=== PATIENT | female | born 1980 | race African-American/Black ===

== ENCOUNTER 2022-06-25 00:57 | Inpatient (IN) | payer OTHER, SELFPAY ==
[2022-06-25] VITALS (216 sets, daily range): BP systolic 90–163; BP diastolic 53–143; PULSE 27–156; RESP 14–19; TEMP 36.2–36.6; O2SAT 67–100; BMI 29.7
[2022-06-25 02:12] LABS: Basophils Percent Auto 0.4 % (0.2-1.2); Eosinophils Absolute Auto 0.1 K/mm3 (0-0.3); Hemoglobin 10.8 g/dL (12.0-15.0); Immature Granulocyte Absolute 0.03 K/mm3 (0.00-0.031); Immature Granulocyte Percent A 0.6 % (0-0.5); Lymphocytes Absolute Auto 1.09 K/mm3 (0.9-3.2); Lymphocytes Percent Auto 20.1 % (18.3-44.2); Mean Corpuscular HGB Conc 32.7 g/dl (32-36); Mean Corpuscular Hemoglobin 27.8 pg (26-34); Mean Corpuscular Volume 84.8 fl (80-100); Mean Platelet Volume 9.6 fl (7.4-10.4); Monocytes Absolute Auto 0.6 K/mm3 (0.1-0.6); Monocytes Percent Auto 10.1 % (2.6-8.5); Neutrophils Absolute Auto 3.6 K/mm3 (1.3-6.7); Neutrophils Percent Auto 66.8 % (45.5-73.1); Platelet Count Result 166 k/mm3 (150-375); Red Blood Count 3.89 M/mm3 (4.2-5.4); Red Cell Distribution Width 17.7 % (11.5-14.5); White Blood Count 5.4 K/mm3 (4.5-10.0)
--- NOTE | 2022-06-25 02:22 | LDADM ---
This patient, Wanda Beckett, was admitted to Labor/Delivery/Recovery 105 on 06/25/22 at 00:57. Plans for labor, pain management and were discussed with patient. Patient/family oriented to hospital policies and general routines including ID bracelet, bed and alarms, visiting hours, pain management, procedures, bathroom and other care routines, personal items, smoking policy, room service/diet and guest tray routines, security routines, and visiting hours. Patient/Family are encouraged to report perceived risks to care and to ask questions if they do not understand what they are told or what they should do. See OBIX for further documentation.
[2022-06-25] MEDS: OXYTOCIN 30 UNITS/NS 500 ML 30 UNITS/500 ML BAG IV CONT (07:00)
[2022-06-25] MEDS: LACTATED RINGERS 1,000 ML 125 ML IV CONT ×2 (07:00→22:05)
--- NOTE | 2022-06-25 07:25 | PM.IMHP ---
H&P: HPI History of Present Illness Date/Time: 06/25/22 07:25 Chief Complaint: SROM Narrative: Wanda is a 42yo at 38.6 with SROM around midnight. She has a prior CS but has VBACed successfully since then and desires another . GBS neg. complicated by AMA over 40yo and anemia for which she received IV iron. Review of Systems Review of Systems: All systems reviewed & are unremarkable except as noted in HPI and below PMFSH Family History Family History (Updated 06/07/22 @ 14:39 by Maribeth Oquendo RN) Father Diabetes mellitus Sibling Diabetes mellitus Social History Social History Smoking status: Never smoker Substance use: never Lack of Transportation: No Lack of Food: Never True Current Housing: I Have Housing Concerned About Future Housing: No Difficulty Paying Gas/Electric Bills: No Difficulty Paying for Meds: No Currently Unemployed: No Education: Bachelor's Degree Difficulty w/ Childcare or Family Care: No Spiritual care concerns: No Meds Home Medications and Allergies Home Medications Medication Instructions Recorded Confirmed Type prenat.vits,radhika,[id number] 1 tablet PO HS 05/18/22 05/18/22 History cyanocobalamin (vitamin B-12) 100 100 mcg PO DAILY 06/07/22 06/07/22 History mcg tablet (Vitamin B-12) Allergies Allergy/AdvReac Type Severity Reaction Status Date / Time Penicillins Allergy Other Verified 06/25/22 03:05 Vital Signs Vital Signs - 24 hr 06/25/22 01:30 06/25/22 01:45 06/25/22 02:00 Temperature 97.8 F Pulse Rate 84 84 89 Respiratory Rate 16 Blood Pressure 105/75 110/74 109/82 Pulse Oximetry Oxygen Delivery 06/25/22 02:15 06/25/22 02:30 06/25/22 02:45 Temperature Pulse Rate 88 86 84 Respiratory Rate Blood Pressure 103/67 103/67 107/68 Pulse Oximetry Oxygen Delivery 06/25/22 04:58 06/25/22 04:59 06/25/22 03:00 Temperature 97.2 F L 97.5 F L Pulse Rate 83 Respiratory Rate 14 16 Blood Pressure 105/73 Pulse Oximetry Oxygen Delivery 06/25/22 06:37 06/25/22 06:42 06/25/22 06:49 Temperature Pulse Rate Respiratory Rate Blood Pressure Pulse Oximetry 99 99 99 Oxygen Delivery 06/25/22 06:54 06/25/22 06:59 06/25/22 07:04 Temperature Pulse Rate Respiratory Rate Blood Pressure Pulse Oximetry 100 100 100 Oxygen Delivery 06/25/22 07:08 06/25/22 07:13 06/25/22 07:18 Temperature Pulse Rate Respiratory Rate Blood Pressure Pulse Oximetry 100 100 100 Oxygen Delivery 06/25/22 07:17 06/25/22 07:23 06/25/22 02:00 Temperature 97.4 F L Pulse Rate Respiratory Rate Blood Pressure Pulse Oximetry 100 Oxygen Delivery Room Air Exam Const: General: no acute distress Resp: Effort & Inspection: normal respiratory effort Auscultation: clear to auscultation bilaterally Cardio: Rate: regular rate Rhythm: regular rhythm GI: GI Palp: Yes Soft to palpation Extrem: General: normal to inspection H&P: Results Labs Labs: Short CBC 06/25/22 Range/Units 01:52 WBC 5.4 (4.5-10.0) K/mm3 Hgb 10.8 L (12.0-15.0) g/dL Hct 33.0 L (37.0-47.0) % Plt Count 166 (150-375) k/mm3 Assessment and Plan Assessment and plan (1) AMA (advanced maternal age) multigravida 35+: Code(s): O09.529 - Supervision of elderly multigravida, unspecified trimester Status: Acute (2) History of delivery: Code(s): Z98.891 - History of uterine scar from previous surgery Status: Acute (3) Hx successful (vaginal after ), currently : Code(s): O34.219 - Maternal care for unspecified type scar from previous delivery Status: Acute Plan FHT category 1 discussed pitocin augmentation with IUPC in to avoid chorioamnionitis in a prolonged labor as her contractions are infrequent 7 hours out from SROM. pt agreeable. IUPC p
[2022-06-25 11:21] LABS: Rapid Plasma Reagin Non-Reactive (NonReactive)
--- NOTE | 2022-06-25 12:55 | PM.OBPNLAB ---
Pain Control Date/time seen: 06/25/22 12:55 Assessment and Plan Comments: vertex on BSUS /-4 FHT category 1 toco irregular, not adequate continue pitocin
--- NOTE | 2022-06-25 16:56 | WPDANESEPP ---
Anes - Eval Pre Procedure Procedure: Labor epidural Date/Time: 06/25/22 16:56 Pre Op Diagnosis: Contractions/Leaking Patient Data Age: 42 Gender: F Height: 1.65 m Weight: 81 kg Last Vital Signs Temp 36.6 C 06/25/22 15:00 Pulse 77 06/25/22 16:45 Resp 16 06/25/22 15:00 BP 105/73 06/25/22 16:45 Pulse Ox 100 06/25/22 16:54 O2 Del Method Room Air 06/25/22 02:00 Allergies Allergy/AdvReac Type Severity Reaction Status Date / Time Penicillins Allergy Other Verified 06/25/22 03:05 Home Medications Medication Instructions Recorded Confirmed Type prenat.vits,radhika,[id number] 1 tablet PO HS 05/18/22 05/18/22 History cyanocobalamin (vitamin B-12) 100 100 mcg PO DAILY 06/07/22 06/07/22 History mcg tablet (Vitamin B-12) Laboratory Tests 06/25/22 01:52 WBC 5.4 K/mm3 (4.5-10.0) RBC 3.89 L M/mm3 (4.2-5.4) Hgb 10.8 L g/dL (12.0-15.0) Hct 33.0 L % (37.0-47.0) MCV 84.8 fl (80-100) MCH 27.8 pg (26-34) MCHC 32.7 g/dl (32-36) RDW 17.7 H % (11.5-14.5) Plt Count 166 k/mm3 (150-375) MPV 9.6 fl (7.4-10.4) Immature Gran % (Auto) 0.6 H % (0-0.5) Neut % (Auto) 66.8 % (45.5-73.1) Lymph % (Auto) 20.1 % (18.3-44.2) Edwards % (Auto) 10.1 H % (2.6-8.5) Eos % (Auto) 2.0 % (0-4.4) Baso % (Auto) 0.4 % (0.2-1.2) Lymph # (Auto) 1.09 K/mm3 (0.9-3.2) Edwards # (Auto) 0.6 K/mm3 (0.1-0.6) Eos # (Auto) 0.1 K/mm3 (0-0.3) Baso # (Auto) 0.0 K/mm3 (0.0-0.1) Abs Immat Gran (auto) 0.03 K/mm3 (0.00-0.031) Absolute Neuts (auto) 3.6 K/mm3 (1.3-6.7) Absolute Nucleated RBC 0.0 K/mm3 (0.0-0.012) Nucleated RBC % 0.0 % (0.0-0.2) RPR Non-reactive (NonReactive) Blood Type O Positive Antibody Screen Negative Patient hx anesthesia problems: none Family hx anesthesia problems: none Results Review: All pre-operative results and documents have been reviewed as part of the pre-operative evaluation. [facility] Past Medical History Medical History (Updated 06/25/22 @ 16:57 by Anna Marie Lu CRNA) Anxiety and depression Migraine Scoliosis Family History Family History Father Diabetes mellitus Sibling Diabetes mellitus Social History Social History Smoking status: Never smoker Substance use: never Lack of Transportation: No Lack of Food: Never True Current Housing: I Have Housing Concerned About Future Housing: No Difficulty Paying Gas/Electric Bills: No Difficulty Paying for Meds: No Currently Unemployed: No Education: Bachelor's Degree Difficulty w/ Childcare or Family Care: No Spiritual care concerns: No Exam Day of Procedure 06/25/22 16:56 Patient weight: overweight Heart: regular rate and rhythm Lungs: normal air movement Airway: Mallampati scale Neurological: alert and oriented
[2022-06-25] MEDS: ceFAZolin 2 GM/D5W 50 ML 2 GM/50 ML BAG IVPB ×2 (17:40→23:36)
--- NOTE | 2022-06-25 23:15 | WPDHPUPDATE1 ---
History and Physical Update Update Date/Time: 06/25/22 23:15 History and Physical has been reviewed, including an updated exam of the patient. SVE 7-8/70/-3 FHT category 2 with minimal to moderate variability. has had two prolonged decelerations in the last hour, now with recurrent late decelerations until pitocin turned off. unable to run pitocin at all without decelerations. toco with pitocin off very inadequate contractions. given very slow change, vertex still very high, inability to run pitocin, multiple prolonged decelerations and lates, recommend section for failed . Pt agreeable. FHT with pitocin off 120 moderate variability with accels, nonrecurrent lates. consented to repeat CS for failed TOLAC, intolerance of labor. Will proceed. Risks, benefits, and alternatives have been discussed and questions answered. Patient agrees to proceed with procedure.
[2022-06-25] MEDS: AZITHROMYCIN 500 MG/NS 250 ML 500 MG/250 ML BAG 250 MG IVPB (23:36)
[2022-06-26] VITALS (52 sets, daily range): BP systolic 82–110; BP diastolic 40–71; PULSE 64–266; RESP 14–18; TEMP 36.1–37; O2SAT 94–100
[2022-06-26] MEDS: KETOROLAC 30 MG/ML VIAL (*BKC) IV PUSH (00:23)
--- NOTE | 2022-06-26 00:34 | PM.OBPRVD ---
OB - Delivery Note Procedure Delivery date: 06/26/22 Procedure: Procedures Operation Date: 06/25/22 23:10 <No data on this case meets the specified criteria> repeat section Events: Previous Delivery Intrapartal Events: Decelerations and Non-Reassuring Status Delivery augmentation: Pitocin Delivery monitor: External FHT and Internal Uterine Route of delivery: Prior to decision for section, ACOG/SMFM labor guidelines were considered and discussed with the patient and staff. Decision made to proceed with the section.: Yes Specimen: Yes (placenta) Quantitative Blood Loss (ml): 860 Anesthesia type: Spinal Disposition: Floor Complications: none Narrative: Preop Dx: IUP at term, prolonged ROM, prior CS, failed TOLAC, intolerance of labor Post op Dx: same The patient was taken to the OR and epidural was dosed. She was placed in dorsal supine position with left lateral tilt. SCDs and travis were placed. She was prepped and draped in the normal sterile fashion. A Pfannensteil skin incision was made and carried through to the underlying layer of fascia. The fascia was incised in the midline and then extended laterally using Reyes scissors. The muscles were in the midline and the peritoneum was entered bluntly. The peritoneal incision was extended inferiorly and superiorly with care to avoid the bladder. The bladder blade was then inserted, the vesicouterine peritoneum was grasped, incised with Metzenbaum scissors, and a bladder flap created. The bladder blade was reinserted. A low transverse uterine incision was made with a scalpel and extended bluntly. AROM was performed and fluid was noted to be clear. The head was delivered, followed by the remainder of the baby. The baby's oropharynx was suctioned. After 30 seconds, the cord was clamped and cut and the was handed off. Cord blood was obtained and the placenta was then removed manually. The uterus was unable to be exteriorized. A moist lap sponge was used to curette the endometrium. The uterine incision was then closed with one layer of 0-Vicryl in a running, locking fashion. Good hemostasis was noted. Both lateral gutters were then irrigated. The rectus muscles were inspected and found to be hemostatic. The fascia was reapproximated using 0-Vicryl in running fashion. The subcutaneous tissue was irrigated with normal saline and made hemostatic with Bovie electrocautery. The skin was then closed with absorbable princess. Steri strips and a bandage were applied. The uterus was evacuated. The patient tolerated the procedure very well. All counts were correct. She was taken to the recovery room in good condition. Baby Date of : 06/26/22 Time of : 00:00 Weeks of gestation at delivery: 38 Infant gender: Female Weight (pounds): 7 Weight (ounces): 0 presentation: vertex Placenta delivery description: Manual Removal Cord Vessel Description: 3 Vessels and Delayed Cord Clamping score one minute: 8 score five minutes: 9
[2022-06-26] MEDS: PHENYLEPHRINE 1,000 MCG/10 ML SYRINGE 100 MCG IV PUSH ×2 (00:52→00:58)
--- NOTE | 2022-06-26 03:03 | OBPPTRN ---
Patient transferred to post room #280 via stretcher. Support person present. Oriented to unit, room, information board, rooming in, admission packet and security measures. Patient verbalizes understanding.
[2022-06-26] MEDS: DEXTROSE 5%/0.45% SOD CHL 1,000 ML 125 ML IV CONT (03:30)
[2022-06-26] MEDS: POLYSACCHARIDE IRON COMPLEX 150 MG CAPSULE PO ×2 (09:38→18:55)
[2022-06-26] MEDS: DOCUSATE SODIUM 100 MG CAPSULE PO ×2 (09:38→18:55)
[2022-06-26] MEDS: MULTIVIT/MIN/PREN/FOL AC/IRON TABLET 1 TAB PO (09:38)
--- NOTE | 2022-06-26 18:32 | WPDANLDNPN2 ---
Anes-Prog Note L&D-Neuraxial Date/Time: 06/26/22 18:32 Patient feedback: Patient satisfied with post-operative pain management.
--- NOTE | 2022-06-26 18:32 | WPDANLDPN2 ---
Anes-Prog Note L&D Date/Time: 06/26/22 18:32 Neuro status: Neuro function grossly intact. Cardiovascular status: normal Respiratory status: normal Airway patency: baseline Mental status: baseline Post-Op hydration status: normal Vital Signs: Last Vital Signs Temp 37.0 C 06/26/22 16:40 Pulse 86 06/26/22 16:40 Resp 16 06/26/22 16:40 BP 102/66 06/26/22 16:40 Pulse Ox 100 06/26/22 16:40 O2 Del Method Room Air 06/26/22 03:15 Pain score (VAS): 0 I/O: Intake & Output 06/26/22 06/26/22 06/26/22 07:59 15:59 23:59 Intake Total 300 1740 700 Output Total 1110 850 600 Balance -810 890 100 Post-procedural complaints: none Patient feedback: Patient satisfied with anesthetic care.
[2022-06-26] MEDS: IBUPROFEN 600 MG TABLET PO (18:56)
[2022-06-27 05:06] LABS: Basophils Percent Auto 0.3 % (0.2-1.2); Eosinophils Absolute Auto 0.1 K/mm3 (0-0.3); Eosinophils Percent Auto 0.8 % (0-4.4); Hematocrit 29.5 % (37.0-47.0); Hemoglobin 9.4 g/dL (12.0-15.0); Immature Granulocyte Absolute 0.05 K/mm3 (0.00-0.031); Immature Granulocyte Percent A 0.7 % (0-0.5); Immature Platelet Fraction Pct 2.9 % (0.9-11.2); Lymphocytes Absolute Auto 0.95 K/mm3 (0.9-3.2); Lymphocytes Percent Auto 13.3 % (18.3-44.2); Mean Corpuscular HGB Conc 31.9 g/dl (32-36); Mean Corpuscular Hemoglobin 27.7 pg (26-34); Mean Platelet Volume 9.9 fl (7.4-10.4); Monocytes Absolute Auto 0.6 K/mm3 (0.1-0.6); Monocytes Percent Auto 8.5 % (2.6-8.5); Neutrophils Absolute Auto 5.5 K/mm3 (1.3-6.7); Neutrophils Percent Auto 76.4 % (45.5-73.1); Platelet Count Result 170 k/mm3 (150-375); Red Blood Count 3.39 M/mm3 (4.2-5.4); Red Cell Distribution Width 17.9 % (11.5-14.5); White Blood Count 7.2 K/mm3 (4.5-10.0)
[2022-06-27 09:15] VITALS: BP 115/75; PULSE 80; RESP 16; TEMP 36.9; O2SAT 99
--- NOTE | 2022-06-27 10:18 | PM.OBPNVD ---
OB - PN: Subj Subjective Date/time seen: 06/27/22 10:18 s/p rpt section,failed pt doing well, encouraged ibuprofen and tylenol flatus present OB - PN: Obj Data Labs 06/27/22 04:55 Labs: Laboratory Results - last 24 hr 06/27/22 04:55 WBC 7.2 RBC 3.39 L Hgb 9.4 L Hct 29.5 L MCV 87.0 MCH 27.7 MCHC 31.9 L RDW 17.9 H Plt Count 170 MPV 9.9 Immature Gran % (Auto) 0.7 H Neut % (Auto) 76.4 H Lymph % (Auto) 13.3 L Otero % (Auto) 8.5 Eos % (Auto) 0.8 Baso % (Auto) 0.3 Lymph # (Auto) 0.95 Otero # (Auto) 0.6 Eos # (Auto) 0.1 Baso # (Auto) 0.0 Abs Immat Gran (auto) 0.05 H Absolute Neuts (auto) 5.5 Absolute Nucleated RBC 0.0 Nucleated RBC % 0.0 % Immature Plt Fraction 2.9 OB - PN A/P Plan day: 1 Plan: routine care Time Spent With Patient Time: Total time spent is greater than 50% in coordination of care (as documented) at patient's floor/unit and/or counseling patient: Review of Systems Review of Systems: All systems reviewed & are unremarkable except as noted in HPI and below Exam Narrative: incision CDI steri strips intact Const: General: cooperative and healthy appearing Chest: Chest palpation & inspection: normal inspection of the chest Resp: Effort & Inspection: normal respiratory effort Skin: General skin exam: normal color Extrem: General: normal to inspection Psych: Appearance: grossly normal and well kempt
[2022-06-27] MEDS: IBUPROFEN 600 MG TABLET PO ×2 (10:22→16:15)
[2022-06-27] MEDS: MULTIVIT/MIN/PREN/FOL AC/IRON TABLET 1 TAB PO (10:22)
[2022-06-27] MEDS: DOCUSATE SODIUM 100 MG CAPSULE PO ×2 (10:22→16:15)
[2022-06-27] MEDS: POLYSACCHARIDE IRON COMPLEX 150 MG CAPSULE PO (16:15)
[2022-06-27] MEDS: SIMETHICONE 80 MG TAB.CHEW PO (16:23)
[2022-06-27 20:00] VITALS: BP 113/70; PULSE 82; RESP 18; TEMP 36.8; O2SAT 99
[2022-06-28] MEDS: SIMETHICONE 80 MG TAB.CHEW PO ×2 (01:06→07:45)
[2022-06-28] MEDS: IBUPROFEN 600 MG TABLET PO ×3 (01:06→16:15)
--- NOTE | 2022-06-28 07:28 | PM.OBPNVD ---
OB - PN: Subj Subjective Date/time seen: 06/28/22 07:28 Patient comments: no complaints and pain well controlled baby status: doing well and other (awaiting cultures) feeding status: exclusively breast feeding Narrative: would like DC home if baby ok to go. OB - PN: Obj Data Labs 06/27/22 04:55 OB - PN A/P Plan day: 2 Plan: routine care Comments: DC home if baby ok to go Time Spent With Patient Time: Total time spent is greater than 50% in coordination of care (as documented) at patient's floor/unit and/or counseling patient: Exam Narrative: NAD abdomen soft, appropriately tender, incision CDI Extremities nontender with 1+ edema
--- NOTE | 2022-06-28 07:31 | PM.OBDSVD ---
DS: Admitting Diagnosis Discharge Date 06/28/22 Admitting Diagnosis SROM, prior CS, prior successful DS: Discharge Diagnosis Discharge Diagnosis (1) Failed attempted vaginal after previous delivery: Code(s): O66.41 - Failed attempted vaginal after previous delivery Status: Acute (2) delivery delivered: Code(s): O82 - Encounter for delivery without indication Status: Acute OB - DS: Summary Hospital Course Hospital Course: Wanda was admitted for SROM without labor at term. She had a prior CS and a prior and desired . She was augmented with pitocin and progressed to 7-8cm but still thick and high and baby had several prolonged decelerations along with repetitive lates, so she had a repeat CS. Her course was uncomplicated. OB Procedures : NST and Ultrasound OB Procedures Intrapartum: OB Procedures: : None Peripartum Data Delivery Method: Section Procedures: Procedures Operation Date: 06/25/22 23:10 Actual Procedure Side Surgeon p Section Bilateral Carolina Cuenca MD Repeat low transverse section complications: none Status at Discharge Functional status at discharge: independent ambulation Time Spent with Patient Time attestation: Total time spent providing and/or coordinating discharge services: Exam Narrative: NAD abdomen soft, appropriately tender, incision CDI DS: Data Data Completed and Pending Pending studies at discharge: Pending at discharge 06/26/22 00:02 Surgical [PTH] Routine Discharge Plan Discharge Attending physician on discharge: Carolina Cuenca Discharging Clinician: Carolina Cuenca Anticipated Discharge Date/Time: 06/28/22 07:30 Patient Disposition: Home, Self-Care Activity: may shower, may drive after 2 weeks and pelvic rest Diet: regular Patient Instructions: Antibiotic Form Stand Alone Forms: General Discharge Information Follow-up/Referrals: Carolina Cuenca MD [Physician] - 1 Week Discharge Medications: Continued Vitamin Tablet 1 tablet PO HS cyanocobalamin (vitamin B-12) [Vitamin B-12] 100 mcg Tablet 100 mcg PO DAILY Date of admission: 06/25/22 00:57 Primary Care Provider: TomRigo) Admitting Provider: Carolina Cuenca Attending physician on admission: Carolina Cuenca Condition: Stable
[2022-06-28 07:40] VITALS: BP 117/78; PULSE 65; RESP 16; TEMP 37; O2SAT 99
[2022-06-28] MEDS: POLYSACCHARIDE IRON COMPLEX 150 MG CAPSULE PO ×2 (07:44→16:15)
[2022-06-28] MEDS: DOCUSATE SODIUM 100 MG CAPSULE PO ×2 (07:45→16:15)
[2022-06-28] MEDS: MULTIVIT/MIN/PREN/FOL AC/IRON TABLET 1 TAB PO (07:45)
--- NOTE | 2022-06-28 10:10 | PC.NURSE ---
[id number] Introductions were made, then consulted with patient to assess needs related to . Mother led the conversation with her?plans to feed?her infant, has great history and her?experience so far has been independently with no pain other than the initial discomfort. Resources provided for inpatient and outpatient services with the feeding sheet, mom/baby guide and name written on the white board. Mother voiced understanding of information and will call if there is a request for assistance. Mother requested a pump through insurance for her future feeding plans. Reviewed feeding positioning, assessing nipple for misshaping after , and protecting the milk supply for mother as she said it has been 10 years since she last breastfed. Reported to the primary RN.
[2022-06-28 21:35] VITALS: BP 115/75; PULSE 77; RESP 16; TEMP 36.6
--- NOTE | 2022-06-29 07:34 | PM.OBPNVD ---
OB - PN: Subj Subjective Date/time seen: 06/29/22 07:34 Patient comments: no complaints and pain well controlled baby status: doing well and nursing well [place] feeding status: exclusively breast feeding OB - PN: Obj Data Labs 06/27/22 04:55 OB - PN A/P Assessment and Plan (1) delivery delivered: Code(s): O82 - Encounter for delivery without indication Status: Acute Plan day: 3 Plan: discharge home Time Spent With Patient Time: Total time spent is greater than 50% in coordination of care (as documented) at patient's floor/unit and/or counseling patient: Exam Narrative: NAD abdomen soft, appropriately tender, incision CDI Extremities nontender with 1+ edema
[2022-06-29 07:55] VITALS: BP 121/80; PULSE 65; RESP 16; TEMP 37.1; O2SAT 99
[2022-06-29] MEDS: POLYSACCHARIDE IRON COMPLEX 150 MG CAPSULE PO (08:47)
[2022-06-29] MEDS: DOCUSATE SODIUM 100 MG CAPSULE PO (08:47)
[2022-06-29] MEDS: MULTIVIT/MIN/PREN/FOL AC/IRON TABLET 1 TAB PO (08:47)
--- NOTE | 2022-06-29 10:28 | PC.NURSE ---
Patient viewed the discharge video Mother & Baby Care, The First Two Weeks . Patient was given the opportunity and encouraged to ask questions. Patient verbalized understanding of information shared and has been given the mother/baby guide for home reference.
--- NOTE | 2022-06-29 14:41 | PC.NURSE ---
[id number] Insurance breast pump provided due to mothers request for lactating. Instructions given on cleaning, care, usage, that there should be no pain, pumping schedule for milk production, collection, and storage of human milk. Discussed and reviewed guidelines for correct placement, flange size, to pump for comfort and nipple stretching/stimulation for adequate milk production every 3 hours (8 times in 24 hours) 1-2 times at night. History of successful Mother voiced understanding of the education shared along with mom and baby guide for additional resource information. Mother is demonstrating effectively on the left breast with no pain and is encouraged to call for a flange assessment if needed. Mother comments that her milk is in . Reported to the primary RN.
== END 2022-06-29 12:10 | disposition home or self-care (01) | DRG 788 ==
LOC: ANHLDR 01:58 → ANHOB2 06-26 03:25
PROVIDERS: Admitting Provider Obstetrics & Gynecology; PCP Internal Medicine; Visit Provider Obstetrics & Gynecology
PROC: (CPT 59514; principal; 2022-06-25 23:10)
DX: O42.92 Full-term premature rupture of membranes, unspecified as to length of time between rupture and onset of labor (principal); Z37.0 Single live birth; Z3A.39 39 weeks gestation of pregnancy; O34.211 Maternal care for low transverse scar from previous cesarean delivery; O36.8330 Maternal care for abnormalities of the fetal heart rate or rhythm, third trimester, not applicable or unspecified; O66.41 Failed attempted vaginal birth after previous cesarean delivery; O99.02 Anemia complicating childbirth; D64.9 Anemia, unspecified
CPT/HCPCS: 36415; 85025; 85055; 86592; 86850; 86900; 86901; 88307; A9270; J0131; J0456; J0690; J1885; J2274; J2370; J2405; J2590; J2795; J7120